=== PATIENT | female | born 1975 | race Two or more races ===

== ENCOUNTER 2021-10-18 08:55 | Emergency (ER) | payer SELFPAY ==
[~2021-10-18] VITALS: Ht 167.6 cm; Wt 106.0 kg
[2021-10-18] MEDS ORDERED: LIDO:MAALOX 1:1 20 ML SINGLE DOSE. SWSW ONE (09:15)
[2021-10-18] MEDS ORDERED: FAMOTIDINE 20 MG TABLET. PO ONE (09:15)
[2021-10-18 09:43] LABS: BASO # 0.1 x10^3/uL (0.0-0.2); BASO % 1 % (0-3); EOS # 0.1 x10^3/uL (0.0-0.7); EOS % 1 % (0-3); HEMATOCRIT 35.7 % (36.0-47.0); HEMOGLOBIN 11.2 g/dL (12.0-15.5); LYMPH % 15 % (24-48); MEAN CORPUSCULAR HEMOGLOBIN 22 pg (25-35); MEAN CORPUSCULAR HGB CONC 32 g/dL (31-37); MEAN CORPUSCULAR VOLUME 70 fL (79-100); MONO # 0.5 x10^3/uL (0.0-1.1); MONO % 8 % (0-9); NEUT # 4.6 x10^3/uL (1.8-7.7); NEUT % 75 % (31-73); PLATELET COUNT 384 x10^3/uL (140-400); RED BLOOD COUNT 5.14 x10^6/uL (3.50-5.40); RED CELL DISTRIBUTION WIDTH 18.1 % (11.5-14.5); WHITE BLOOD COUNT 6.2 x10^3/uL (4.0-11.0)
[2021-10-18 09:55] LABS: CALCIUM 9.2 mg/dL (8.5-10.1); CREATININE 0.5 mg/dL (0.6-1.0); GFR 132.2; POTASSIUM 4.1 mmol/L (3.5-5.1)
[2021-10-18 10:00] LABS: ALBUMIN 3.4 g/dL (3.4-5.0); ALBUMIN/GLOBULIN RATIO 0.9 (1.0-1.7); TOTAL BILIRUBIN 0.2 mg/dL (0.2-1.0); TOTAL PROTEIN 7.3 g/dL (6.4-8.2)
[2021-10-18] MEDS ORDERED: IOHEXOL 300 MG/ML 100ML VIAL. IV ONE (10:30)
[2021-10-18] MEDS ORDERED: CONTRAST GIVEN. MC PRN (10:30)
--- NOTE | 2021-10-18 10:54 | RAD ---
EXAM: CT Abdomen and Pelvis with IV contrast CLINICAL HISTORY: Reason: abdominal pain / Spl. Instructions: / History: . COMPARISON: none TECHNIQUE: Helical CT of the abdomen and pelvis was performed following the administration of intrave nous contrast. Axial, coronal and sagittal reformatted images were generated. PQRS compliance statement - One or more of the following individualized dose reduction techniques wer e utilized for this study: 1. Automated exposure control 2. Adjustment of the mA and/or kV according to patient size 3. Use of iterative reconstruction technique FINDINGS: Lower Chest: Lung bases are clear. Heart size is normal. No pericardial effusion. Abdomen and Pelvis: Diffuse hepatic steatosis. No focal suspicious hepatic abnormality. Normal gallbladder is present. No biliary ductal dilation. The spleen, adrenals, and pancreas are unremarkable. Kidneys are symmetric in size with no perinephric inflammation. No nephrolithiasis or hydronephrosis. Tiny hiatal hernia. Stomach is unremarkable in appearance. There is no evidence of obstruction. Appen cosmo is normal. Scattered colonic diverticulosis without evidence of diverticulitis. There is mild thi ckening of the transverse and ascending colon which may be due to underdistention or mild colitis. No free intra-abdominal air or free fluid. No abdominal or pelvic adenopathy. Vasculature is normal in course and caliber. Urinary bladder is decompressed precluding complete evaluation. Normal-appearing anteverted uterus. N o suspicious adnexal masses. No acute abnormality in the anterior abdominal wall. No acute or suspicious osseous abnormalities. IMPRESSION: 1. Mild wall thickening of the transverse and descending colon may be due to underdistention or mild colitis. 2. Hepatic steatosis. 3. Colonic diverticulosis without evidence of diverticulitis. Electronically signed by: Pierre Foss DO (10/18/2021 10:51 AM) [facility]
[2021-10-18] MEDS ORDERED: SUCR1TAB35 PO (11:04)
[2021-10-18] MEDS ORDERED: OMEP20TA63 PO (11:04)
--- NOTE | 2021-10-18 11:04 | PHYS DOC ---
Past Medical History Past Surgical History: No Surgical History Smoking Status: Never Smoker Alcohol Use: Rarely General Adult EDM: Chief Complaint: ABDOMINAL PAIN HPI: HPI: Patient is a 46 year old female who present to ER for evaluation of epigastric abdominal pain that been going on for 3 days. Patient described the pain as burning sensation, denies any cough or fever, no nausea vomiting. Patient states she has been taking some Tums [id number], it does improve her pain but she still has pain. Patient has history of hypertension and diabetic. Patient denies any history of heart disease, no history of blood clot disorder. Patient denies any bloody stool. Review of Systems: Review of Systems: Constitutional: Denies fever or chills. [] Eyes: Denies change in visual acuity. [] HENT: Denies nasal congestion or sore throat. [] Respiratory: Denies cough or shortness of breath. [] Cardiovascular: Denies chest pain or edema. [] GI: Positive for epigastric abdominal pain, no nausea vomiting, no bloody stool, no diarrhea : Denies dysuria. [] Musculoskeletal: Denies back pain or joint pain. [] Integument: Denies rash. [] Neurologic: Denies headache, focal weakness or sensory changes. [] Endocrine: Denies polyuria or polydipsia. [] Lymphatic: Denies swollen glands. [] Psychiatric: Denies depression or anxiety. [] Heart Score: C/O Chest Pain: N/A Risk Factors: Risk Factors: DM, Current or recent (<one month) smoker, HTN, HLP, family history of CAD, obesity. Risk Scores: Score 0 - 3: 2.5% MACE over next 6 weeks - Discharge Home Score 4 - 6: 20.3% MACE over next 6 weeks - Admit for Clinical Observation Score 7 - 10: 72.7% MACE over next 6 weeks - Early Invasive Strategies Current Medications: Current Medications Medications (Trade) Dose Ordered Sig/Bakari Start Time Stop Time Status Last Admin Dose Admin Famotidine (Pepcid) 20 mg 1X ONCE 10/18/21 09:15 10/18/21 09:48 DC 10/18/21 09:42 20 MG Info (CONTRAST GIVEN -- Rx MONITORING) 1 each PRN DAILY PRN 10/18/21 10:30 10/20/21 10:29 Iohexol (Omnipaque 300 Mg/ml) 75 ml 1X ONCE 10/18/21 10:30 10/18/21 10:31 DC 10/18/21 10:40 75 ML Multi-Ingredient Mouthwash/Gargle (Gi Cocktail) 20 ml 1X ONCE 10/18/21 09:15 10/18/21 09:48 DC 10/18/21 09:42 20 ML Allergies: Allergies: Allergies Coded Allergies Type Severity Reaction Last Updated Verified No Known Drug Allergies 10/18/21 No Physical Exam: PE: Constitutional: Well developed, well nourished, no acute distress, non-toxic appearance. [] HENT: Normocephalic, atraumatic, bilateral external ears normal, oropharynx moist, no oral exudates, nose normal. [] Eyes: PERRLA, EOMI, conjunctiva normal, no discharge. [] Neck: Normal range of motion, no tenderness, supple, no stridor. [] Cardiovascular:Heart rate regular rhythm, no murmur [] Lungs & Thorax: Bilateral breath sounds clear to auscultation [] Abdomen: Bowel sounds normal, soft, there is tenderness in epigastric area, no masses, no pulsatile masses. [] Skin: Warm, dry, no erythema, no rash. [] Back: No tenderness, no CVA tenderness. [] Extremities: No tenderness, no cyanosis, no clubbing, ROM intact, no edema. [] Neurologic: Alert and oriented X 3, normal motor function, normal sensory function, no focal deficits noted. [] Psychologic: Affect normal, judgement normal, mood normal. [] Current Patient Data: Labs: Laboratory Tests Test 10/18/21 09:35 White Blood Count 6.2 x10^3/uL (4.0-11.0) Red Blood Count 5.14 x10^6/uL (3.50-5.40) Hemoglobin 11.2 g/dL (12.0-15.5) L Hematocrit 35.7 % (36.0-47.0) L Mean Corpuscular Volume 70 fL (79-100) L Mean Corpuscular Hemoglobin 22 pg (25-35) L Mean Corpuscular Hemoglobin Concent 32 g/dL (31-37) Red Cell Distribution Width 18.1 % (11.5-14.5) H Platelet Count 384 x10^3/uL (140-400) Neutrophils (%) (Auto) 75 % (31-73) H Lymphocytes (%) (Auto) 15 % (24-48) L Monocytes (%) (Auto) 8 % (0-9) Eosinophils (%) (Auto) 1 % (0-3) Basophils (%) (Auto) 1 % (0-3) Neutrophils # (Auto) 4.6 x10^3/uL (1.8-7.7) Lymphocytes # (Auto) 1.0 x10^3/uL (1.0-4.8) Monocytes # (Auto) 0.5 x10^3/uL (0.0-1.1) Eosinophils # (Auto) 0.1 x10^3/uL (0.0-0.7) Basophils # (Auto) 0.1 x10^3/uL (0.0-0.2) Platelet Estimate Pending Sodium Level 138 mmol/L (136-145) Potassium Level 4.1 mmol/L (3.5-5.1) Chloride Level 101 mmol/L (98-107) Carbon Dioxide Level 26 mmol/L (21-32) Anion Gap 11 (6-14) Blood Urea Nitrogen 10 mg/dL (7-20) Creatinine 0.5 mg/dL (0.6-1.0) L Estimated GFR (Cockcroft-Gault) 132.2 BUN/Creatinine Ratio 20 (6-20) Glucose Level 149 mg/dL (70-99) H Calcium Level 9.2 mg/dL (8.5-10.1) Total Bilirubin 0.2 mg/dL (0.2-1.0) Aspartate Amino Transferase (AST) 11 U/L (15-37) L Alanine Aminotransferase (ALT) 24 U/L (14-59) Alkaline Phosphatase 84 U/L (46-116) Troponin I High Sensitivity 4 ng/L (4-50) FF-Gwg-E-Type Natriuretic Peptide 26 pg/mL (0-124) Total Protein 7.3 g/dL (6.4-8.2) Albumin 3.4 g/dL (3.4-5.0) Albumin/Globulin Ratio 0.9 (1.0-1.7) L Lipase 45 U/L (73-393) L Laboratory Tests 10/18/21 09:35 Laboratory Tests 10/18/21 09:35 Vital Signs: Vital Signs Date Time Temp Pulse Resp B/P (MAP) Pulse Ox O2 Delivery O2 Flow Rate FiO2 10/18/21 09:14 98.2 72 18 157/98 (117) 98 Room Air 98.2 EKG: EKG: EKG was done at 927, heart rate of 66 bpm, sinus rhythm, no ST segment elevation. Radiology/Procedures: Radiology/Procedures: [facility] [address] [place] [address] IMAGING REPORT Signed PATIENT: AJ PANG ACCOUNT: [id number] : 1975 LOCATION: ER AGE: 46 SEX: F EXAM STATUS: REG ER ORD. PHYSICIAN: HIRAM DAVIES DO REASON: abdominal pain PROCEDURE: CT ABD PELV W/ IV CONTRST ONLY EXAM: CT Abdomen and Pelvis with IV contrast CLINICAL HISTORY: Reason: abdominal pain / Spl. Instructions: / History: . COMPARISON: none TECHNIQUE: Helical CT of the abdomen and pelvis was performed following the administration of intravenous contrast. Axial, coronal and sagittal reformatted images were generated. PQRS compliance statement - One or more of the following individualized dose reduction techniques were utilized for this study: 1. Automated exposure control 2. Adjustment of the mA and/or kV according to patient size 3. Use of iterative reconstruction technique FINDINGS: Lower Chest: Lung bases are clear. Heart size is normal. No pericardial effusion. Abdomen and Pelvis: Diffuse hepatic steatosis. No focal suspicious hepatic abnormality. Normal gallbladder is present. No biliary ductal dilation. The spleen, adrenals, and pancreas are unremarkable. Kidneys are symmetric in size with no perinephric inflammation. No nephrolithiasis or hydronephrosis. Tiny hiatal hernia. Stomach is unremarkable in appearance. There is no evidence of obstruction. Appendix is normal. Scattered colonic diverticulosis without evidence of diverticulitis. There is mild thickening of the transverse and ascending colon which may be due to underdistention or mild colitis. No free intra-abdominal air or free fluid. No abdominal or pelvic adenopathy. Vasculature is normal in course and caliber. Urinary bladder is decompressed precluding complete evaluation. Normal-appearing anteverted uterus. No suspicious adnexal masses. No acute abnormality in the anterior abdominal wall. No acute or suspicious osseous abnormalities. IMPRESSION: 1. Mild wall thickening of the transverse and descending colon may be due to underdistention or mild colitis. 2. Hepatic steatosis. 3. Colonic diverticulosis without evidence of diverticulitis. Electronically signed by: Kamran Bright DO (10/18/2021 10:51 AM) [facility], [facility]–1983 DICTATED and SIGNED BY: KAMRAN BRIGHT DO DATE: 10/18/21 104 Course & Med Decision Making: Course & Med Decision Making Pertinent Labs and Imaging studies reviewed. (See chart for details) Patient is a 46-year-old female who present to the ER for evaluation of epigastric abdominal pain that been going on for the last 3 days. Patient declines pain or burning sensation. Patient was given medication in ER, she feels much better. Work-up in ER felt to reveal any acute problem. Patient be discharged home, I will prescribe patient with antiacid medication and Carafate. Patient was advised to follow-up with her family physician for referral to GI specialist for an EGD if she continues to have pain. Dragon Disclaimer: Dragon Disclaimer: This electronic medical record was generated, in whole or in part, using a voice recognition dictation system. Departure Departure Impression: Primary Impression: Gastritis Disposition: 01 HOME / SELF CARE / HOMELESS Condition: IMPROVED Referrals: NO PCP (PCP) Please follow up with [facility] this week. [address], [address] [place] [address] Phone number: [phone] Patient Instructions: Gastritis, Adult Additional Instructions: Thank you for visiting our Emergency Department. We appreciate you trusting us with your care. If any additional problems come up don't hesitate to return to visit us. Please follow up with your primary care provider so they can plan additional care if needed and know about the problem that you had. If symptoms worsen come back to the Emergency Department. Any concerning symptoms that start such as chest pain, shortness of air, weakness or numbness on one side of the body, running high fevers or any other concerning symptoms return to the ER. Scripts Omeprazole Magnesium (PRILOSEC OTC) 20 Mg Tablet. 1 TAB PO DAILY for 30 Days, #30 TAB 0 Refills Prov: HIRAM DAVIES DO 10/18/21 Sucralfate (CARAFATE) 1 Gm Tablet 1 TAB PO QID for 7 Days, #28 TAB 0 Refills Prov: HIRAM DAVIES DO 10/18/21 HIRAM DAVIES DO Oct 18, 2021 11:04
--- NOTE | 2021-10-18 11:22 | EKG ---
[facility] [address] [place] [address] Test Date: 2021-10-18 Test Time: 09:27:58 Pat Name: AJ PANG Department: Room: Gender: F [employer] Specialist: : 1975 Requested By: HIRAM DAVIES Order Number: [id number] Reading MD: Ryder Conner Measurements Intervals [place] Rate: 66 P: -23 TN: 128 QRS: 20 QRSD: 96 T: 1 QT: 406 QTc: 427 Interpretive Statements SINUS RHYTHM NON SPECIFIC T WAVE CHANGES Electronically Signed On 10-20-2021 17:02:57 CDT by Ryder Conner
[2021-10-18 11:48] VITALS: BP 125/78
[2021-10-18 13:04] LABS: ANISOCYTOSIS PRESENT; HYPOCHROMIA MOD; MICROCYTOSIS MOD; PLT ESTIMATE ADEQUATE (ADEQUATE)
== END 2021-10-18 11:48 | disposition home or self-care (01) ==
LOC: ER 08:55
DX: K29.70 Gastritis, unspecified, without bleeding (principal)
CPT/HCPCS: 36415; 74177; 80053; 83690; 83880; 84484; 85025; 93005; 99285; Q9967